=== PATIENT | female | born 1995 | race Caucasian/White ===

== ENCOUNTER 2017-06-13 09:51 | Emergency (ER) | payer OTHER ==
[~2017-06-13] VITALS: Wt 50.5 kg
--- NOTE | 2017-06-13 10:29 | ERD ---
ER Documentation Chief Complaint Chief Complaint COUGH, FEVER AT HOME, BODYACHES, ONSET 6 DAYS HPI This is a 21-year-old female who presents the emergency department today complaining of cough, body aches, back pain for the past week. Patient states that it went away for a little bit and then returned yesterday. States that she took Robitussin but no other medications. States that she think she had a fever yesterday. denies any dysuria, vomiting, diarrhea. ROS All systems reviewed and are negative except as per history of present illness. Medications Home Meds Active Scripts Dextromethorphan Hb-Promethazine Hcl* (Promethazine DM* Syrup) 473 Ml Syrup, 5 ML PO Q6 Y for COUGH for 5 Days, ML Prov:SOLITARIO HERNANDEZ PA-C 06/13/17 Electrolyte,Oral (Pedialyte) 1,000 Ml Solution, 100 ML PO Q6 Y for FEVER, #1000 ML Prov:SOLITARIO HERNANDEZC 06/13/17 Acetaminophen* (Tylophen*) 500 Mg Capsule, 1 CAP PO Q6H Y for PAIN AND OR ELEVATED TEMP, #30 CAP Prov:SOLITARIO HERNANDEZC 06/13/17 Ibuprofen* (Motrin*) 600 Mg Tab, 600 MG PO Q6, #30 TAB Prov:SOLITARIO HERNANDEZC 06/13/17 Cephalexin* (Keflex*) 500 Mg Capsule, 500 MG PO QID for 7 Days, CAP Prov:SOLITARIO HERNANDEZC 06/13/17 Reported Medications [None] No Conflict Check 10/20/10 Allergies Allergies: Coded Allergies: No Known Drug Allergies (Verified Allergy, Mild, 06/13/17) PMhx/Soc History of Surgery: No Anesthesia Reaction: No Hx Neurological Disorder: No Hx Respiratory Disorders: No Hx Cardiac Disorders: No Hx Psychiatric Problems: No Hx Miscellaneous Medical Probl: No Hx Alcohol Use: No Hx Substance Use: No Hx Tobacco Use: No Physical Exam Vitals Vital Signs Date Time Temp Pulse Resp B/P Pulse Ox O2 Delivery O2 Flow Rate FiO2 06/13/17 09:55 99.0 102 18 131/74 99 Physical Exam Const: well appearing, NAD Head: Atraumatic Eyes: Normal Conjunctiva ENT: Ears TMs normal. Nose no drainage. Throat erythema no exudate no vesicles Neck: Full range of motion..~ No meningismus. Resp: Clear to auscultation bilaterally Cardio: Regular rate and rhythm, no murmurs Abd: Soft, non tender, non distended. Normal bowel sounds Skin: No petechiae or rashes Back: No midline tenderness. No CVA tenderness. Ext: No cyanosis, or edema Neur: Awake and alert Psych: Normal Mood and Affect Results 24 hrs Laboratory Tests Test 06/13/17 10:41 Bedside Urine pH (LAB) 6.5 Bedside Urine Protein (LAB) Negative Bedside Urine Glucose (UA) Negative Bedside Urine Ketones (LAB) 1+ Bedside Urine Blood Trace-intact Bedside Urine Nitrite (LAB) Positive Bedside Urine Leukocyte Esterase (L Negative Current Medications Medications (Trade) Dose Ordered Sig/Trinh Route PRN Reason Start Time Stop Time Status Last Admin Dose Admin Ibuprofen (Motrin) 800 mg ONCE ONCE PO 06/13/17 10:30 06/13/17 10:31 DC 06/13/17 10:38 Procedures/MDM This is an treatment well-appearing 21-year-old female presents emergency department today with flulike symptoms. Patient is afebrile and otherwise well- appearing however patient did report back pain and a fever at home yesterday and therefore did check a UA. UA shows positive nitrites and negative leukocyte esterase. Patient is afebrile at this time and have low suspicion for pyelonephritis or nephrolithiasis. Symptoms at this time is consistent with flulike symptoms and urinary tract infection. I have low suspicion for strep pharyngitis, peritonsillar abscess, retropharyngeal abscess, otitis media, PNA, sinusitis, abscess, meningitis, sepsis, or other acute infectious bacterial process. Patient was given Motrin here in the emergency department. Give her a prescription for Tylenol, Motrin, Pedialyte and promethazine in addition to Keflex to treat the urinary tract infection. At this time the patient is stable for discharge and outpatient management. Patient should follow up with their PCP in the next 1-2 days. They may return to the emergency department sooner for any persistent or worsening of symptoms. Patient understood and agreed with the plan. Departure Diagnosis: Primary Impression: Influenza-like symptoms Additional Impression: UTI (urinary tract infection) Urinary tract infection type: site unspecified Hematuria presence: without hematuria Qualified Code: N39.0 - Urinary tract infection without hematuria, site unspecified Condition: SOLITARIO Monaco PA-C Jun 13, 2017 10:29
[2017-06-13] MEDS ORDERED: IBUPROFEN 800 MG TAB PO ONE (10:30)
[2017-06-13 10:40] LABS: URINE BLOOD (Dip) POC Trace-intact (NEGATIVE)
[2017-06-13] MEDS ORDERED: ACET500C5 PO (10:46)
[2017-06-13] MEDS ORDERED: CEPH-443 PO (10:46)
[2017-06-13] MEDS ORDERED: IBUP-1542 PO (10:46)
[2017-06-13] MEDS ORDERED: ELEC100080 PO (10:47)
[2017-06-13] MEDS ORDERED: D-ME473S2 PO (10:48)
== END 2017-06-13 10:55 | disposition home or self-care (01) ==
LOC: FTE 09:51
DX: R05 Cough (principal); N39.0 Urinary tract infection, site not specified; R50.9 Fever, unspecified
CPT/HCPCS: 81003; Z7502; Z7610; 99284

== ENCOUNTER → 2017-08-16 | Emergency (ER) | END | disposition left against medical advice (07) ==